=== PATIENT | male | born 1970 | race Caucasian/White ===

== ENCOUNTER 2017-06-08 22:16 | Emergency (ER) | payer BC ==
[~2017-06-08] VITALS: Ht 180.3 cm; Wt 131.5 kg
[~2017-06-08 22:16] MED LIST: HYDACE5 PO; IBUP800 PO; NAPR500 PO; NAPR500EC PO; OXYACE5T PO; RXOXYACE PO; Zithromax250 MG PO; [UNRECOGNIZED DRUG - OTHER]
[2017-06-08 22:59] LABS: BASOPHILS ABSOLUTE AUTO 0.04 K/mm3 (0.00-0.23); BASOPHILS PERCENT AUTO 1 % (0-2); EOSINOPHILS ABSOLUTE AUTO 0.41 K/mm3 (0.00-0.68); EOSINOPHILS PERCENT AUTO 7 % (0-6); Hematocrit 41.5 % (37.0-53.0); Hemoglobin 13.5 g/dL (13.5-17.5); IMMATURE GRAN ABSOLUTE AUTO 0.01 K/mm3 (0.00-0.10); IMMATURE GRAN PERCENT AUTO 0 % (0-1); LYMPHOCYTES ABSOLUTE AUTO 1.73 K/mm3 (0.84-5.20); LYMPHOCYTES PERCENT AUTO 29 % (21-46); MONOCYTES ABSOLUTE AUTO 0.43 K/mm3 (0.16-1.47); MONOCYTES PERCENT AUTO 7 % (4-13); Mean Corpuscular HGB 30.2 pg (26.0-34.0); Mean Corpuscular HGB Conc 32.5 g/dL (31.5-36.5); Mean Corpuscular Volume 93 fL (80-100); Mean Platelet Volume 9.8 fL (9.1-12.4); NEUTROPHILS ABSOLUTE AUTO 3.44 K/mm3 (1.96-9.15); NEUTROPHILS PERCENT AUTO 57 % (41-73); Platelet Count 216 K/mm3 (150-400); RDW Coefficient Variation 12.1 % (11.7-14.2); RDW Standard Deviation 41.6 fL (35.1-46.3); Red Blood Cell Count 4.47 M/mm3 (4.30-5.90); White Blood Cell Count 6.06 K/mm3 (4.00-11.30)
[2017-06-08 23:19] LABS: Alanine Aminotransfer (ALT/SGP 41 U/L (12-78); Albumin, Blood 3.3 g/dL (3.4-5.0); Albumin/Globulin Ratio 0.9 (0.8-1.8); Alk Phos 78 U/L (50-136); Anion Gap 7 mmol/L (6-16); Aspartate Aminotrans (AST/SGOT 22 U/L (12-37); Bilirubin, Total 0.2 mg/dL (0.1-1.0); Blood Urea Nitrogen 15 mg/dL (8-24); Bun/Creatinine Ratio 15.5 (12.0-20.0); CO2, Blood 24 mmol/L (21-32); Chloride, Blood 112 mmol/L (98-108); Creatinine, Blood 0.97 mg/dL (0.60-1.20); Globulin, Blood 3.6 g/dL (2.2-4.0); Glomerular Filtration Rate >60 (60-); Glucose, Blood 102 mg/dL (70-99); Potassium, Blood 4.1 mmol/L (3.5-5.5); Sodium, Blood 143 mmol/L (136-145); Total Protein, Blood 6.9 g/dL (6.4-8.2); Troponin I <0.015 ng/mL (0.000-0.040)
[2017-06-09] MEDS ORDERED: TIOT18 INH (00:52)
[2017-06-09] MEDS ORDERED: Prednisone50 MG PO (00:52)
[2017-06-09] MEDS ORDERED: Zithromax250 MG PO (00:52)
[2017-06-09] MEDS ORDERED: Guaifenesin-Co118 ML PO (00:52)
== END 2017-06-09 01:51 | disposition home or self-care (01) ==
LOC: ER 22:16
PROVIDERS: Emergency Medicine
DX: J44.1 Chronic obstructive pulmonary disease with (acute) exacerbation (principal); Z88.0 Allergy status to penicillin; Z87.891 Personal history of nicotine dependence
CPT/HCPCS: 36415; 71046; 80053; 84484; 85025; 93005; 93010; 94640; 99284; J1100

== ENCOUNTER 2020-01-26 22:26 | Inpatient (IN) | payer BC ==
[~2020-01-26] VITALS: Ht 180.3 cm; Wt 134.3 kg
[~2020-01-26 22:26] MED LIST changes: +DIPATR PO; +Guaifenesin-Co118 ML PO; +ONDA4 PO; +Prednisone50 MG PO; +TIOT18 INH
[2020-01-26] MEDS ORDERED: Hydroxyzine HCl50 MG PO (22:45)
[2020-01-26] MEDS ORDERED: Ventolin/Prove6.7 GM INH (22:45)
[2020-01-26] MEDS ORDERED: FLUTICASONE-SA1 EAC9 IH (22:46)
[2020-01-26 23:11] LABS: BASOPHILS ABSOLUTE AUTO 0.04 K/mm3 (0.00-0.23); BASOPHILS PERCENT AUTO 0 % (0-2); EOSINOPHILS ABSOLUTE AUTO 0.12 K/mm3 (0.00-0.68); EOSINOPHILS PERCENT AUTO 1 % (0-6); Hematocrit 44.7 % (37.0-53.0); Hemoglobin 14.5 g/dL (13.5-17.5); IMMATURE GRAN ABSOLUTE AUTO 0.02 K/mm3 (0.00-0.10); IMMATURE GRAN PERCENT AUTO 0 % (0-1); LYMPHOCYTES ABSOLUTE AUTO 1.44 K/mm3 (0.84-5.20); LYMPHOCYTES PERCENT AUTO 13 % (21-46); MONOCYTES ABSOLUTE AUTO 1.48 K/mm3 (0.16-1.47); MONOCYTES PERCENT AUTO 13 % (4-13); Mean Corpuscular HGB 29.2 pg (26.0-34.0); Mean Corpuscular HGB Conc 32.4 g/dL (31.5-36.5); Mean Corpuscular Volume 90 fL (80-100); Mean Platelet Volume 9.9 fL (9.1-12.4); NEUTROPHILS ABSOLUTE AUTO 8.02 K/mm3 (1.96-9.15); NEUTROPHILS PERCENT AUTO 72 % (41-73); Platelet Count 199 K/mm3 (150-400); RDW Coefficient Variation 12.1 % (11.7-14.2); RDW Standard Deviation 39.9 fL (35.1-46.3); Red Blood Cell Count 4.97 M/mm3 (4.30-5.90); White Blood Cell Count 11.12 K/mm3 (4.00-11.30)
[2020-01-26 23:32] LABS: Alanine Aminotransfer (ALT/SGP 115 U/L (12-78); Albumin, Blood 3.3 g/dL (3.4-5.0); Albumin/Globulin Ratio 0.8 (0.8-1.8); Alk Phos 110 U/L (50-136); Anion Gap 6 mmol/L (6-16); Aspartate Aminotrans (AST/SGOT 81 U/L (12-37); Bilirubin, Total 0.7 mg/dL (0.1-1.0); Blood Urea Nitrogen 14 mg/dL (8-24); Bun/Creatinine Ratio 14.3 (12.0-20.0); CO2, Blood 26 mmol/L (21-32); Calcium, Blood 8.6 mg/dL (8.5-10.1); Chloride, Blood 108 mmol/L (98-108); Creatinine, Blood 0.98 mg/dL (0.60-1.20); Globulin, Blood 4.3 g/dL (2.2-4.0); Glomerular Filtration Rate >60 (60-); Glucose, Blood 117 mg/dL (70-99); Potassium, Blood 3.6 mmol/L (3.5-5.5); Sodium, Blood 140 mmol/L (136-145); Total Protein, Blood 7.6 g/dL (6.4-8.2); Troponin I <0.015 ng/mL (0.000-0.040)
[2020-01-27 00:35] LABS: Influenza A, PCR Negative (NEGATIVE); Influenza B, PCR Negative (NEGATIVE); Resp Syncytial Virus, PCR Negative (NEGATIVE); SARS-Cov-2 (COVID-19) PCR, MMC Negative (NEGATIVE)
[2020-01-27 01:31] LABS: International Normalized Ratio 0.97; Prothrombin Time Results 10.4 Sec (9.7-11.5)
--- NOTE | 2020-01-27 05:41 | NUR ---
SHIFT SUMMARY- PT. NEW ADMIT FROM ED. ARRIVED VIA STRETCHER. PT. A&OX4, INDEP IN ROOM. PT. C/O L SHOULDER PAIN, MEDICATED PER EMAR WITH MINIMAL EFFECT. PT. GIVEN ICE PACK AND EXTRA PILLOW TO ASSIST WITH PAIN WELL. ALSO C/O MILD SOB ON 2L OF O2 NC FOR COMFORT. HEPARIN GTT INFUSING, TOLERATING WELL. PT. RESTING QUIETLY IN BED, NO APPARENT DISTRESS NOTED, VSS. CALL LIGHT WITHIN REACH AND SIDE RAILS UPX2. WILL CONT TO MONITOR.
[2020-01-27 08:26] LABS: BASOPHILS ABSOLUTE AUTO 0.05 K/mm3 (0.00-0.23); BASOPHILS PERCENT AUTO 1 % (0-2); EOSINOPHILS ABSOLUTE AUTO 0.12 K/mm3 (0.00-0.68); EOSINOPHILS PERCENT AUTO 1 % (0-6); Hematocrit 43.1 % (37.0-53.0); Hemoglobin 13.9 g/dL (13.5-17.5); IMMATURE GRAN ABSOLUTE AUTO 0.04 K/mm3 (0.00-0.10); IMMATURE GRAN PERCENT AUTO 0 % (0-1); LYMPHOCYTES ABSOLUTE AUTO 1.19 K/mm3 (0.84-5.20); LYMPHOCYTES PERCENT AUTO 12 % (21-46); MONOCYTES ABSOLUTE AUTO 1.22 K/mm3 (0.16-1.47); MONOCYTES PERCENT AUTO 12 % (4-13); Mean Corpuscular HGB 29.8 pg (26.0-34.0); Mean Corpuscular HGB Conc 32.3 g/dL (31.5-36.5); Mean Corpuscular Volume 93 fL (80-100); Mean Platelet Volume 10.1 fL (9.1-12.4); NEUTROPHILS ABSOLUTE AUTO 7.49 K/mm3 (1.96-9.15); NEUTROPHILS PERCENT AUTO 74 % (41-73); Platelet Count 201 K/mm3 (150-400); RDW Coefficient Variation 12.4 % (11.7-14.2); RDW Standard Deviation 42.2 fL (35.1-46.3); Red Blood Cell Count 4.66 M/mm3 (4.30-5.90); White Blood Cell Count 10.11 K/mm3 (4.00-11.30)
[2020-01-27 09:01] LABS: Alanine Aminotransfer (ALT/SGP 158 U/L (12-78); Albumin, Blood 3.2 g/dL (3.4-5.0); Albumin/Globulin Ratio 0.8 (0.8-1.8); Alk Phos 118 U/L (50-136); Anion Gap 6 mmol/L (6-16); Aspartate Aminotrans (AST/SGOT 134 U/L (12-37); Bilirubin, Total 0.7 mg/dL (0.1-1.0); Blood Urea Nitrogen 14 mg/dL (8-24); Bun/Creatinine Ratio 13.2 (12.0-20.0); CO2, Blood 27 mmol/L (21-32); CPK Creatine Kinase 84 U/L (39-308); Calcium, Blood 8.4 mg/dL (8.5-10.1); Chloride, Blood 106 mmol/L (98-108); Creatinine, Blood 1.06 mg/dL (0.60-1.20); Globulin, Blood 4.2 g/dL (2.2-4.0); Glomerular Filtration Rate >60 (60-); Glucose, Blood 108 mg/dL (70-99); Potassium, Blood 3.6 mmol/L (3.5-5.5); Sodium, Blood 139 mmol/L (136-145); Total Protein, Blood 7.4 g/dL (6.4-8.2); Troponin I <0.015 ng/mL (0.000-0.040)
--- NOTE | 2020-01-27 10:49 | NUR ---
Echo done by Cindy Rodriguez RDCS.
[2020-01-27 15:58] LABS: CPK Creatine Kinase 180 U/L (39-308)
[2020-01-27 16:00] LABS: Prothrombin Time Results 10.7 Sec (9.7-11.5)
--- NOTE | 2020-01-27 17:02 | NUR ---
SUMMARY PT RESTING QUIETLY IN BED, WAKES EASILY, INDEPENDENT IN THE ROOM, PT HAS C/O L SIDE PAIN AND PAIN WITH BREATHING T/O THE DAY, MED FREQUENTLY PER EMAR, PT OFTEN EXPRESSING PAIN DRAMATICALLY, PLEASANT AND COOPERATIVE WITH CARE, REMAINS ON HEPARIN GTT, BOLUSED SEVERAL TIMES THIS SHIFT, VSS, WILL CONTINUE TO MONITOR
[2020-01-28 01:13] LABS: BASOPHILS ABSOLUTE AUTO 0.03 K/mm3 (0.00-0.23); BASOPHILS PERCENT AUTO 0 % (0-2); EOSINOPHILS ABSOLUTE AUTO 0.04 K/mm3 (0.00-0.68); EOSINOPHILS PERCENT AUTO 0 % (0-6); Hematocrit 42.6 % (37.0-53.0); Hemoglobin 13.2 g/dL (13.5-17.5); IMMATURE GRAN ABSOLUTE AUTO 0.05 K/mm3 (0.00-0.10); IMMATURE GRAN PERCENT AUTO 0 % (0-1); LYMPHOCYTES ABSOLUTE AUTO 1.13 K/mm3 (0.84-5.20); LYMPHOCYTES PERCENT AUTO 9 % (21-46); MONOCYTES ABSOLUTE AUTO 1.53 K/mm3 (0.16-1.47); MONOCYTES PERCENT AUTO 12 % (4-13); Mean Corpuscular HGB 29.1 pg (26.0-34.0); Mean Corpuscular Volume 94 fL (80-100); Mean Platelet Volume 9.9 fL (9.1-12.4); NEUTROPHILS ABSOLUTE AUTO 9.95 K/mm3 (1.96-9.15); NEUTROPHILS PERCENT AUTO 78 % (41-73); Platelet Count 192 K/mm3 (150-400); RDW Coefficient Variation 12.2 % (11.7-14.2); RDW Standard Deviation 42.4 fL (35.1-46.3); Red Blood Cell Count 4.53 M/mm3 (4.30-5.90); White Blood Cell Count 12.73 K/mm3 (4.00-11.30)
[2020-01-28 01:28] LABS: Anion Gap 4 mmol/L (6-16); Blood Urea Nitrogen 13 mg/dL (8-24); Bun/Creatinine Ratio 14.3 (12.0-20.0); CO2, Blood 30 mmol/L (21-32); Calcium, Blood 8.6 mg/dL (8.5-10.1); Chloride, Blood 103 mmol/L (98-108); Creatinine, Blood 0.91 mg/dL (0.60-1.20); Glomerular Filtration Rate >60 (60-); Glucose, Blood 113 mg/dL (70-99); Potassium, Blood 3.9 mmol/L (3.5-5.5); Sodium, Blood 137 mmol/L (136-145)
[2020-01-28 01:30] LABS: International Normalized Ratio 1.03
--- NOTE | 2020-01-28 04:39 | NUR ---
SHIFT SUMMARY PT SLEPT ON AND OFF T/O NIGHT, CONTINUED TO COMPLAIN OF MID BACK PAIN AND STATES "IT FEEL MORE MUSCLE RELATED". PT ALSO STATES THAT PAIN WORSENS WITH SUDDEN MOVEMENTS AND/OR COUGHING. MEDICATED FOR PAIN PER APR. PT C/O FEELING CONSTIPATED. NEW ORDERS FOR FLEXIRIL AND BOWEL CARE OBTAINED. HEPARIN CONTINUING TO INFUSE, TITRATED FROM 19 U/KG/HR TO 20 U/KG/HR. PT IS CURRENTLY LAYING IN BED WITH EYES CLOSED, EVEN AND UNLABORED RESPIRATIONS. BED IN LOWERED POSITION WITH SIDE RAILS UP X2 FOR SAFETY. CALL LIGHT AND PERSONAL ITEMS WITH IN REACH. NO APPARENT NEEDS OR DISTRESS AT THIS TIME, WILL CONTINUE TO MONITOR UNTIL REPORT GIVEN TO DAY RN.
--- NOTE | 2020-01-28 13:09 | NUR ---
report received from noc nurse, pt unhappy with fluid output, informed dr prabha discussed dehydration s/sx with pt, pt also discussed treatments and instructions with staff, he was encouraged to follow dr navarrete and to continue to drink, 240ml, ate soup for lunch and continues to drink water
[2020-01-28] MEDS ORDERED: DOCU100 PO (16:02)
[2020-01-28] MEDS ORDERED: ENOX100I SC (16:05)
[2020-01-28] MEDS ORDERED: METO25 PO (16:07)
[2020-01-28] MEDS ORDERED: WARF5 PO (16:10)
--- NOTE | 2020-01-28 18:07 | NUR ---
left with staff member when arrived to [facility], both iv's removed intact, reviewed medication, apointment to visit [facility] at 1400 on 01/28 and pcp 02/03 at 0915, requested lovenox shot at home clinic but they were unable to accomadate, suggested he talk with them during his appointment, a+o but still worried about fluid intake, reiterated what told him r/po fluids and test results, self transfered to , with all belongings from drawers and closet, gave him d/c pw
== END 2020-01-28 17:35 | disposition home or self-care (01) | DRG 175 ==
LOC: ER 22:26 → MEDS 22:27
PROVIDERS: Emergency Medicine; Internal Medicine; Pharmacist; Physician Assistant; ADMIT Internal Medicine
DX: I26.99 Other pulmonary embolism without acute cor pulmonale (principal); J96.01 Acute respiratory failure with hypoxia; Z68.41 Body mass index [BMI] 40.0-44.9, adult; I38 Endocarditis, valve unspecified; J44.9 Chronic obstructive pulmonary disease, unspecified; E66.01 Morbid (severe) obesity due to excess calories; F41.9 Anxiety disorder, unspecified; I35.8 Other nonrheumatic aortic valve disorders; Z20.828 Contact with and (suspected) exposure to other viral communicable diseases; Z87.891 Personal history of nicotine dependence
CPT/HCPCS: 0241U; 36415; 71046; 71260; 80048; 80053; 81241; 82550; 83690; 83880; 84484; 85025; 85610; 85730; 93005; 93010; 93306; 93970; 94640; 94760; 96365; 96375; 96376; 99285-25; A9270-GY; G0378; J1170; J1644; J1650; J2405; J3010; Q9967

== ENCOUNTER 2020-02-02 00:14 | Day surgery (SDC) | payer BC ==
[~2020-02-02 00:14] MED LIST changes: +DOCU100 PO; +ENOX100I SC; +FLUTICASONE-SA1 EAC9 IH; +Hydroxyzine HCl50 MG PO; +METO25 PO; +Ventolin/Prove6.7 GM INH; +WARF5 PO
[2020-02-02] MEDS ORDERED: WARF7.5 PO (11:39)
== END 2020-02-02 11:30 | disposition home or self-care (01) ==
LOC: ATC 00:14
DX: I26.99 Other pulmonary embolism without acute cor pulmonale (principal); J44.9 Chronic obstructive pulmonary disease, unspecified; Z79.01 Long term (current) use of anticoagulants; Z79.51 Long term (current) use of inhaled steroids; Z79.899 Other long term (current) drug therapy; Z88.0 Allergy status to penicillin
CPT/HCPCS: 36416; 85610; 96372; J1650

== ENCOUNTER 2020-02-03 00:21 | Day surgery (SDC) | payer BC ==
[~2020-02-03 00:21] MED LIST changes: +WARF7.5 PO
--- NOTE | 2020-02-03 13:57 | NUR ---
DAILY FINGERSTICK INR RESULTS FROM TODAY FAXED TO [facility] ([facility] OFFICE.
== END 2020-02-03 13:35 | disposition home or self-care (01) ==
LOC: ATC 00:21
DX: I26.99 Other pulmonary embolism without acute cor pulmonale (principal); J44.9 Chronic obstructive pulmonary disease, unspecified; Z79.01 Long term (current) use of anticoagulants; Z79.51 Long term (current) use of inhaled steroids; Z79.899 Other long term (current) drug therapy; Z88.0 Allergy status to penicillin
CPT/HCPCS: 36416; 85610; 96372; J1650

== ENCOUNTER 2020-02-04 00:08 | Day surgery (SDC) | payer BC ==
--- NOTE | 2020-02-04 14:11 | NUR ---
PT REPORTS HE STOPPED TAKING HIS METOPROLOL HE FEELS IT IS MAKING HIS HEART RATE MORE RAPID. ENCOURAGED HIM TO SPEAK WITH HIS PCP RE: MEDS AND IMPORTANCE OF TAKING PRESCRIBED.
--- NOTE | 2020-02-04 14:12 | NUR ---
INR RESULTS FROM TODAY FAXED TO [facility]ICE.
[2020-02-06] MEDS ORDERED: WARF10 PO (14:35)
== END 2020-02-04 14:03 | disposition home or self-care (01) ==
LOC: ATC 00:08
DX: I26.99 Other pulmonary embolism without acute cor pulmonale (principal); J44.9 Chronic obstructive pulmonary disease, unspecified; Z79.01 Long term (current) use of anticoagulants; Z79.51 Long term (current) use of inhaled steroids; Z79.899 Other long term (current) drug therapy; Z88.0 Allergy status to penicillin
CPT/HCPCS: 36416; 85610; 96372; J1650

== ENCOUNTER 2020-02-07 00:06 | Day surgery (SDC) | payer BC ==
[~2020-02-07 00:06] MED LIST changes: +WARF10 PO
--- NOTE | 2020-02-07 14:44 | NUR ---
INR RESULTS FROM TODAY FAXED TO [facility]ICE.
== END 2020-02-07 13:46 | disposition home or self-care (01) ==
LOC: ATC 00:06
DX: I26.99 Other pulmonary embolism without acute cor pulmonale (principal); J44.9 Chronic obstructive pulmonary disease, unspecified; Z79.899 Other long term (current) drug therapy; Z88.0 Allergy status to penicillin
CPT/HCPCS: 85610; J1650

== ENCOUNTER 2020-02-08 00:14 | Day surgery (SDC) | payer BC ==
--- NOTE | 2020-02-08 15:14 | NUR ---
PT'S INR RESULTS FAXED TO HIS PCP, [facility].
== END 2020-02-08 13:50 | disposition home or self-care (01) ==
LOC: ATC 00:14
DX: I26.99 Other pulmonary embolism without acute cor pulmonale (principal); J44.9 Chronic obstructive pulmonary disease, unspecified; Z88.0 Allergy status to penicillin; Z79.899 Other long term (current) drug therapy
CPT/HCPCS: 85610; J1650

== ENCOUNTER 2020-02-09 00:09 | Day surgery (SDC) | payer BC | END 2020-02-09 14:35 | disposition home or self-care (01) | LOC: ATC 00:09 | DX: I26.99 Other pulmonary embolism without acute cor pulmonale (principal); J44.9 Chronic obstructive pulmonary disease, unspecified; Z79.01 Long term (current) use of anticoagulants; Z79.51 Long term (current) use of inhaled steroids; Z79.899 Other long term (current) drug therapy; Z88.0 Allergy status to penicillin; Z20.828 Contact with and (suspected) exposure to other viral communicable diseases | CPT/HCPCS: 85610; J1650 ==

== ENCOUNTER 2020-02-10 09:19 | Day surgery (SDC) | payer BC | END 2020-02-10 14:35 | disposition home or self-care (01) | LOC: ATC 09:19 | DX: I26.99 Other pulmonary embolism without acute cor pulmonale (principal); J44.9 Chronic obstructive pulmonary disease, unspecified; Z79.899 Other long term (current) drug therapy; Z88.0 Allergy status to penicillin | CPT/HCPCS: 36416; 85610; 96372; J1650 ==

== ENCOUNTER 2020-02-11 00:19 | Day surgery (SDC) | payer BC ==
--- NOTE | 2020-02-11 14:13 | NUR ---
INR 1.7, PT ANGRY ABOUT HAVING TO COME IN FOR 2 WEEKS.
== END 2020-02-11 14:00 | disposition home or self-care (01) ==
LOC: ATC 00:19
DX: I26.99 Other pulmonary embolism without acute cor pulmonale (principal); J44.9 Chronic obstructive pulmonary disease, unspecified; Z79.01 Long term (current) use of anticoagulants; Z79.51 Long term (current) use of inhaled steroids; Z79.899 Other long term (current) drug therapy; Z88.0 Allergy status to penicillin
CPT/HCPCS: 36416; 85610; 96372; J1650

== ENCOUNTER 2020-02-13 07:51 | Day surgery (SDC) | payer BC ==
--- NOTE | 2020-02-12 16:02 | NUR ---
PT DID NOT COME IN FOR HIS [facility] APPOINTMENT TODAY.
== END 2020-02-13 14:20 | disposition home or self-care (01) ==
LOC: ATC 07:51
DX: I26.99 Other pulmonary embolism without acute cor pulmonale (principal); J44.9 Chronic obstructive pulmonary disease, unspecified; J96.01 Acute respiratory failure with hypoxia; Z88.0 Allergy status to penicillin
CPT/HCPCS: 85610; J1650

== ENCOUNTER 2020-02-14 00:50 | Day surgery (SDC) | payer BC ==
--- NOTE | 2020-02-14 15:16 | NUR ---
PT NO SHOW FOR APPOINTMENT AT 1400 TODAY. CALLED PHONE NUMBER ON FILE AND IT WENT STRAIGHT TO [employer]. NO MESSAGE LEFT.
== END 2020-02-14 22:53 | disposition home or self-care (01) ==
LOC: ATC 00:50
DX: I26.99 Other pulmonary embolism without acute cor pulmonale (principal); J44.9 Chronic obstructive pulmonary disease, unspecified; J96.01 Acute respiratory failure with hypoxia; Z88.0 Allergy status to penicillin
CPT/HCPCS: J1650

== ENCOUNTER 2020-02-15 00:23 | Day surgery (SDC) | payer BC ==
--- NOTE | 2020-02-15 14:39 | NUR ---
PT NO SHOW FOR 1400 APPOINTMENT. ATTEMPT TO PHONE PT, NO ANSWER.
== END 2020-02-15 22:44 | disposition home or self-care (01) ==
LOC: ATC 00:23
DX: I26.99 Other pulmonary embolism without acute cor pulmonale (principal); J96.01 Acute respiratory failure with hypoxia; R94.31 Abnormal electrocardiogram [ECG] [EKG]; J44.9 Chronic obstructive pulmonary disease, unspecified; Z88.0 Allergy status to penicillin
CPT/HCPCS: J1650

== ENCOUNTER 2021-04-06 00:27 | Emergency (ER) | payer OTHER ==
[~2021-04-06] VITALS: Ht 180.3 cm; Wt 136.1 kg
[2021-04-06 00:52] LABS: BASOPHILS ABSOLUTE AUTO 0.05 K/mm3 (0.00-0.23); BASOPHILS PERCENT AUTO 1 % (0-2); EOSINOPHILS ABSOLUTE AUTO 0.16 K/mm3 (0.00-0.68); EOSINOPHILS PERCENT AUTO 2 % (0-6); Hematocrit 44.8 % (37.0-53.0); Hemoglobin 14.7 g/dL (13.5-17.5); IMMATURE GRAN ABSOLUTE AUTO 0.02 K/mm3 (0.00-0.10); IMMATURE GRAN PERCENT AUTO 0 % (0-1); LYMPHOCYTES PERCENT AUTO 25 % (21-46); MONOCYTES ABSOLUTE AUTO 0.76 K/mm3 (0.16-1.47); MONOCYTES PERCENT AUTO 9 % (4-13); Mean Corpuscular HGB 30.1 pg (26.0-34.0); Mean Corpuscular HGB Conc 32.8 g/dL (31.5-36.5); Mean Corpuscular Volume 92 fL (80-100); Mean Platelet Volume 10.3 fL (9.1-12.4); NEUTROPHILS ABSOLUTE AUTO 5.46 K/mm3 (1.96-9.15); NEUTROPHILS PERCENT AUTO 64 % (41-73); Platelet Count 233 K/mm3 (150-400); RDW Coefficient Variation 12.4 % (11.7-14.2); RDW Standard Deviation 42.2 fL (35.1-46.3); Red Blood Cell Count 4.89 M/mm3 (4.30-5.90); White Blood Cell Count 8.55 K/mm3 (4.00-11.30)
[2021-04-06 00:53] LABS: Source, Urine Voided
[2021-04-06 00:55] LABS: Bilirubin, Urine Neg (Neg); Blood, Urine 1+ (Neg); Glucose Qualitative, Urine Neg (Neg); Ketones, Urine 1+ (Neg); Leukocyte Esterase, Urine Neg (Neg); Nitrite, Urine Neg (Neg); Protein, Urine 1+ (Neg); Specific Gravity, Urine 1.025 (1.003-1.022); Urobilinogen, Urine NORM (Normal)
[2021-04-06 01:06] LABS: Appearance, Urine Hazy (Clear); Color, Urine Yellow (P-Yellow)
[2021-04-06 01:08] LABS: Bacteria Few /hpf; Mucus Heavy (0-Heavy); Squamous Epithelial Cells Few /hpf (Few)
[2021-04-06 01:11] LABS: Alanine Aminotransfer (ALT/SGP 68 U/L (12-78); Albumin, Blood 3.8 g/dL (3.4-5.0); Alk Phos 101 U/L (50-136); Anion Gap 7 mmol/L (6-16); Aspartate Aminotrans (AST/SGOT 36 U/L (12-37); Bilirubin, Total 0.5 mg/dL (0.1-1.0); Blood Urea Nitrogen 21 mg/dL (8-24); Bun/Creatinine Ratio 17.6 (12.0-20.0); CO2, Blood 24 mmol/L (21-32); Calcium, Blood 8.6 mg/dL (8.5-10.1); Chloride, Blood 109 mmol/L (98-108); Creatinine, Blood 1.19 mg/dL (0.60-1.20); Glomerular Filtration Rate >60 (60-); Glucose, Blood 141 mg/dL (70-99); Potassium, Blood 3.8 mmol/L (3.5-5.5); Sodium, Blood 140 mmol/L (136-145); Total Protein, Blood 7.8 g/dL (6.4-8.2)
[2021-04-06 01:46] LABS: CPK Creatine Kinase 218 U/L (39-308); Creatine Kinase MB 1.1 ng/mL (0.0-3.6); Creatine Kinase MB Index 0.5 (0.0-4.0)
[2021-04-06 02:04] LABS: Influenza A, PCR NEGATIVE (NEGATIVE); Influenza B, PCR NEGATIVE (NEGATIVE); Resp Syncytial Virus, PCR NEGATIVE (NEGATIVE)
[2021-04-06 02:31] LABS: SARS-Cov-2 (COVID-19) PCR, MMC POSITIVE (NEGATIVE)
[2021-04-06] MEDS ORDERED: ALBU90OI INH (02:34)
== END 2021-04-06 03:15 | disposition home or self-care (01) ==
LOC: ER 00:27
PROVIDERS: Emergency Medicine
DX: U07.1 COVID-19 (principal); J44.9 Chronic obstructive pulmonary disease, unspecified; Z88.0 Allergy status to penicillin; Z79.01 Long term (current) use of anticoagulants; Z79.899 Other long term (current) drug therapy; Z87.891 Personal history of nicotine dependence
CPT/HCPCS: 0241U; 71260; 80053; 81001; 82550; 82553; 83605; 83880; 84484; 85025; 86141; 93005; 93010; 94644; 99285-25; J7030; Q9967